=== PATIENT | male | born 1970 | race Caucasian/White ===

== ENCOUNTER 2017-03-06 15:31 | Emergency (ER) | payer BC, OTHER ==
[~2017-03-06] VITALS: Ht 182.9 cm; Wt 90.7 kg
[2017-03-06 15:32] VITALS: BP 127/81
[2017-03-06] MEDS ORDERED: MOBIC15 MG PO (17:02)
== END 2017-03-06 17:11 | disposition home or self-care (01) ==
LOC: ER 15:31
DX: S81.811A Laceration without foreign body, right lower leg, initial encounter (principal); S81.812A Laceration without foreign body, left lower leg, initial encounter; Z98.890 Other specified postprocedural states; W26.0XXA Contact with knife, initial encounter; Y93.89 Activity, other specified; Y92.89 Other specified places as the place of occurrence of the external cause; Y99.8 Other external cause status